=== PATIENT | female | born 1965 | race Two or more races ===

== ENCOUNTER 2017-01-30 00:25 | Emergency (ER) | payer OTHER ==
[~2017-01-30] VITALS: Ht 160 cm; Wt 124.3 kg
[2017-01-30 00:25] VITALS: BP 119/86
[~2017-01-30 00:25] MED LIST: BUPR100T4 PO; LANS30TA4 PO; LITH150C PO; TRAZ300T2 PO
== END 2017-01-30 01:00 | disposition home or self-care (01) ==
LOC: ER 00:32
DX: H61.21 Impacted cerumen, right ear (principal); R19.7 Diarrhea, unspecified; Z90.710 Acquired absence of both cervix and uterus; Z88.5 Allergy status to narcotic agent
CPT/HCPCS: 99283; A4606; Z7610

== ENCOUNTER 2017-03-06 13:49 | Emergency (ER) | payer OTHER ==
[~2017-03-06] VITALS: Ht 160 cm; Wt 121.7 kg
--- NOTE | 2017-03-06 13:55 | NUR ---
PT AMBULATORY TO ER 12 C/O SUDDEN ONSET CP. ALSO C/O L SIDE CHEST MASS. ASKING FOR ANTIBIOTICS FOR IT. GOWNED AND PLACED ON MONITOR. STABLE VITALS. AWAITING MD HARRELL.
--- NOTE | 2017-03-06 14:11 | NUR ---
DR FISHER AT BEDSIDE FOR EVAL.
[2017-03-06 14:41] LABS: BASOPHILS % (AUTO) 0.4 % (0.0-2.0); EOSINOPHILS # (AUTO) 0.2 /CMM (0.0-0.7); HEMATOCRIT 39 % (33-45); LYMPHOCYTES # (AUTO) 2.1 /CMM (0.8-4.8); LYMPHOCYTES % (AUTO) 21.4 % (20.0-44.0); MEAN CORPUSCULAR HEMOGLOBIN 28 PG (26.0-33.0); MEAN CORPUSCULAR HGB CONC 34 g/dl (31.0-36.0); MEAN CORPUSCULAR VOLUME 84 fL (82-100); MONOCYTES # (AUTO) 0.4 /CMM (0.1-1.30); MONOCYTES % (AUTO) 4.2 % (2.0-12.0); NEUTROPHILS # (AUTO) 7.2 /CMM (1.8-8.9); PLATELET COUNT (AUTO) 338 /CMM (150-450); RDW COEFFICIENT OF VARIATION 14.4 (11.5-15.0); RED BLOOD CELL COUNT(AUTO) 4.58 MIL/uL (4.0-5.2); WHITE BLOOD COUNT (AUTO) 9.9 K/uL (4.3-11.0)
[2017-03-06] MEDS ORDERED: ACETAMINOPHEN ES 500 MG TABLET ONE (14:41)
[2017-03-06] MEDS ORDERED: ONDANSETRON HCL/PF 4 MG/2 ML VIAL ONE (14:41)
[2017-03-06 14:52] LABS: CALCIUM, SERUM 8.6 mg/dL (8.5-10.1); CARBON DIOXIDE 27 mmol/L (21-32); CHLORIDE 106 mmol/L (98-107); CREATININE 0.6 mg/dL (0.6-1.3); GLUCOSE 113 mg/dL (74-106); POTASSIUM 3.5 mmol/L (3.5-5.1); SODIUM SERUM 139 mmol/L (136-145); UREA NITROGEN, BLOOD 9 mg/dL (7-18)
[2017-03-06 14:55] LABS: INR 0.96 (0.87-1.13)
[2017-03-06] MEDS ORDERED: ACETAMINOPHEN ES 500 MG TABLET PO ONE (15:00)
[2017-03-06] MEDS ORDERED: IV NS 0.9% 1,000 ML BAG IV ONE (15:00)
[2017-03-06] MEDS ORDERED: ONDANSETRON HCL/PF 4 MG/2 ML VIAL IV ONE (15:00)
[2017-03-06 15:02] LABS: TROPONIN I < 0.017 ng/mL (0.00-0.056)
--- NOTE | 2017-03-06 15:31 | NUR ---
Patient discharged to home in stable condition. Written and verbal after care instructions given. Patient verbalizes understanding of instruction.IV removed. Catheter intact and site benign. Pressure and 4x4 applied to site. No bleeding noted.
[2017-03-06 15:32] VITALS: BP 124/68
== END 2017-03-06 15:33 | disposition home or self-care (01) ==
LOC: ER 13:50
DX: R07.89 Other chest pain (principal); N61.0 Mastitis without abscess; F17.200 Nicotine dependence, unspecified, uncomplicated; E78.00 Pure hypercholesterolemia, unspecified; K21.9 Gastro-esophageal reflux disease without esophagitis; F31.9 Bipolar disorder, unspecified; F10.10 Alcohol abuse, uncomplicated; E78.5 Hyperlipidemia, unspecified; Z88.5 Allergy status to narcotic agent; Z71.6 Tobacco abuse counseling
CPT/HCPCS: 36415; 71045-TC; 80048-TC; 84484-TC; 85025-TC; 85730-TC; A4606; J2405; J7030; Z7610

== ENCOUNTER 2019-03-06 12:46 | Emergency (ER) | payer OTHER ==
[~2019-03-06] VITALS: Ht 160 cm; Wt 87.5 kg
[2019-03-06 12:50] VITALS: BP 136/86
[2019-03-06] MEDS ORDERED: KETOROLAC TROMETHAMINE INJ 60 MG/2 ML VIAL IM ONE ×2 (13:00→13:02)
[2019-03-06] MEDS ORDERED: DIAZEPAM 10 MG TABLET PO ONE (13:00)
[2019-03-06] MEDS ORDERED: DIAZEPAM 5 MG TABLET ONE (13:02)
== END 2019-03-06 13:38 | disposition home or self-care (01) ==
LOC: ER 12:49
DX: M26.622 Arthralgia of left temporomandibular joint (principal); K21.9 Gastro-esophageal reflux disease without esophagitis; F31.9 Bipolar disorder, unspecified; E78.5 Hyperlipidemia, unspecified; F17.200 Nicotine dependence, unspecified, uncomplicated; Z90.710 Acquired absence of both cervix and uterus; Z88.5 Allergy status to narcotic agent; Z79.899 Other long term (current) drug therapy
CPT/HCPCS: 82962; 96372; 99283; J1885

== ENCOUNTER 2019-04-25 21:52 | Emergency (ER) | payer OTHER ==
[~2019-04-25] VITALS: Ht 160 cm; Wt 91.6 kg
[2019-04-25 22:01] VITALS: BP 144/84
--- NOTE | 2019-04-25 22:24 | NUR ---
RT HAND INDEX FINGER LACERATION DERMABONDED.
[2019-04-25] MEDS ORDERED: HYDROCODONE/APAP 10/325MG 1 EA TABLET ONE (22:28)
[2019-04-25] MEDS ORDERED: HYDROCODONE/APAP 10/325MG 1 EA TABLET PO ONE (22:30)
== END 2019-04-25 22:43 | disposition home or self-care (01) ==
LOC: ER 21:54
DX: S61.210A Laceration without foreign body of right index finger without damage to nail, initial encounter (principal); K21.9 Gastro-esophageal reflux disease without esophagitis; E78.5 Hyperlipidemia, unspecified; Z90.710 Acquired absence of both cervix and uterus; Z88.5 Allergy status to narcotic agent; Z79.899 Other long term (current) drug therapy; W26.0XXA Contact with knife, initial encounter; Y93.89 Activity, other specified; Y92.89 Other specified places as the place of occurrence of the external cause; Y99.8 Other external cause status

== ENCOUNTER 2019-10-24 20:26 | Emergency (ER) | payer OTHER ==
--- NOTE | 2019-10-24 20:44 | NUR ---
FSBS: 101. NO S/S OF HYPOGLYCEMIA NOTED. PT REPORTED FEELING WELL. WILL CALL PT BACK IN TO THE TRIAGE ROOM [facility]
--- NOTE | 2019-10-24 21:03 | NUR ---
CALLED FOR NATASHA NO ANSWER
--- NOTE | 2019-10-24 21:11 | NUR ---
CALLED FOR NATASHA NO ANSWER
== END 2019-10-24 21:43 | disposition left against medical advice (07) ==
LOC: ER 20:30
DX: Z53.21 Procedure and treatment not carried out due to patient leaving prior to being seen by health care provider (principal); E16.2 Hypoglycemia, unspecified
CPT/HCPCS: 82962-TC

== ENCOUNTER 2019-12-09 17:14 | Emergency (ER) | payer OTHER ==
[~2019-12-09] VITALS: Ht 160 cm; Wt 92.1 kg
--- NOTE | 2019-12-09 17:24 | NUR ---
pt came to er with c/o HEAD INJURY, L FOOT PAIN S/P FALL LAST NIGHT. DENIES KO. NO N/V. NO ZEISURE. NO SWELLING ON LEFT FOOT. ABLE TO MOVE EXTREMITY. AWAITING FOR MD HARRELL
--- NOTE | 2019-12-09 17:28 | NUR ---
seen and evaluated by INDUSTRIAL DESIGNER with new orders noted
[2019-12-09] MEDS ORDERED: KETOROLAC TROMETHAMINE INJ 60 MG/2 ML VIAL IM ONE (17:30)
--- NOTE | 2019-12-09 17:42 | NUR ---
radiology at bedside for L foot/ankle xray.
[2019-12-09] MEDS ORDERED: KETOROLAC TROMETHAMINE INJ 30 MG/ML VIAL ONE ×2 (17:43→17:45)
[2019-12-09 18:37] VITALS: BP 122/73
--- NOTE | 2019-12-09 18:37 | NUR ---
Patient discharged to home in stable condition. Written and verbal after care instructions given. Patient verbalizes understanding of instruction.
== END 2019-12-09 18:38 | disposition home or self-care (01) ==
LOC: ER 17:17
DX: S93.492A Sprain of other ligament of left ankle, initial encounter (principal); S09.8XXA Other specified injuries of head, initial encounter; E11.9 Type 2 diabetes mellitus without complications; K21.9 Gastro-esophageal reflux disease without esophagitis; E78.5 Hyperlipidemia, unspecified; Z90.710 Acquired absence of both cervix and uterus; Z88.5 Allergy status to narcotic agent; Z79.899 Other long term (current) drug therapy; W18.39XA Other fall on same level, initial encounter; Y93.89 Activity, other specified; Y92.89 Other specified places as the place of occurrence of the external cause; Y99.8 Other external cause status
CPT/HCPCS: 73610; 73630; 96372; 99284; J1885

== ENCOUNTER 2020-02-07 20:34 | Emergency (ER) | payer OTHER ==
[~2020-02-07] VITALS: Ht 157.5 cm; Wt 90.7 kg
[2020-02-07 21:11] VITALS: BP 113/80
--- NOTE | 2020-02-07 21:15 | NUR ---
URINE COLLECTED. SENT TO LAB
[2020-02-07] MEDS ORDERED: LORAZEPAM 1 MG TABLET PO ONE (21:30)
[2020-02-07] MEDS ORDERED: ONDANSETRON 4 MG TAB.RAPDIS PO ONE (21:30)
[2020-02-07] MEDS ORDERED: ACETAMINOPHEN 325 MG TABLET PO ONE (21:30)
--- NOTE | 2020-02-07 21:30 | NUR ---
ISAAC C/O +SI -HI, PLAN TO OVERDOSE, ADMITS TO HEROINE AND ALCOHOL USE. PT AMBULATORY TO A CHAIR. ALL BELONGINGS TAKEN AWAY AND REMAINED UNDER CLOSE SUPERVISION FOR SI PRECAUTIONS. VSS.
[2020-02-07] MEDS ORDERED: LORAZEPAM 1 MG TABLET ONE (21:51)
[2020-02-07 21:52] LABS: BASOPHILS % (AUTO) 0.6 % (0.0-2.0); EOSINOPHILS % (AUTO) 4.3 % (0.0-6.0); HEMATOCRIT 37 % (33-45); HEMOGLOBIN 12.3 g/dL (11.5-14.8); LYMPHOCYTES # (AUTO) 2.4 /CMM (0.8-4.8); LYMPHOCYTES % (AUTO) 32.9 % (20.0-44.0); MEAN CORPUSCULAR HGB CONC 33 g/dl (31.0-36.0); MEAN CORPUSCULAR VOLUME 92 fL (82-100); MONOCYTES # (AUTO) 0.4 /CMM (0.1-1.30); NEUTROPHILS # (AUTO) 4.1 /CMM (1.8-8.9); NEUTROPHILS % (AUTO) 57.2 % (43.0-81.0); PLATELET COUNT (AUTO) 268 /CMM (150-450); RED BLOOD CELL COUNT(AUTO) 4.03 MIL/uL (4.0-5.2); WHITE BLOOD COUNT (AUTO) 7.2 K/uL (4.3-11.0)
[2020-02-07] MEDS ORDERED: ACETAMINOPHEN ES 500 MG TABLET ONE (21:52)
[2020-02-07] MEDS ORDERED: ONDANSETRON 4 MG TAB.RAPDIS ONE (21:52)
[2020-02-07 22:39] LABS: BILIRUBIN,URINE NEGATIVE (NEGATIVE); BLOOD, URINE NEGATIVE Ery/uL (NEGATIVE); COLOR,URINE YELLOW (YELLOW); LEUKOCYTE ESTERASE ,URINE NEGATIVE (NEGATIVE); NITRITE, URINE NEGATIVE (NEGATIVE); PH,URINE 5.5 (5.0-8.0); PROTEIN,URINE NEGATIVE (NEGATIVE); UGLUCOSE NEGATIVE (NEGATIVE); UROBILINOGEN,URINE 0.2 EU/dL (0.2)
[2020-02-07 22:41] LABS: CARBON DIOXIDE 24 mmol/L (21-32); CHLORIDE 105 mmol/L (98-107); CREATININE 0.7 mg/dL (0.6-1.3); GLUCOSE 113 mg/dL (74-106); POTASSIUM 3.7 mmol/L (3.5-5.1); SODIUM SERUM 143 mmol/L (136-145); UREA NITROGEN, BLOOD 9 mg/dL (7-18)
[2020-02-07 22:49] LABS: BACTERIA,URINE None seen /HPF (None Seen); RBC,URINE 0-2 /HPF (0-2); WBC,URINE 0-2 /HPF (0-3)
[2020-02-07 22:50] LABS: SQUAMOUS EPITHELIAL CELL,UR Moderate /HPF (None Seen); URINE AMORPHOUS URATE Few /HPF (None Seen); YEAST,URINE Few /HPF (None Seen)
[2020-02-07 23:00] LABS: ACETAMINOPHEN < 2 ug/ml (10-30); ALANINE AMINOTRANSFERASE 12 U/L (12-78); ALBUMIN 3.6 g/dL (3.4-5.0); ALCOHOL, BLOOD 7 mg/dL (0-0); ALKALINE PHOSPHATASE 135 U/L (46-116); ASPARTATE AMINOTRANSFERASE 12 U/L (15-37); BILIRUBIN,TOTAL 0.1 mg/dL (0.2-1.0); TOTAL PROTEIN, SERUM 7.3 g/dL (6.4-8.2)
--- NOTE | 2020-02-07 23:30 | NUR ---
CLINICAL FAXED TO [facility] FOR VOLUNTARY PSYCH ADMISSION.
--- NOTE | 2020-02-08 00:15 | NUR ---
PT ACCEPTED AT [facility] ASA BARBER ACCEPTING MD VERONICA PT WILL GO TO UNIT 1 PHONE # FOR REPORT
--- NOTE | 2020-02-08 00:22 | NUR ---
[facility] CALL THE CAR CALLED FOR TRANSPORT. TRIP#[id number]. REQUESTING FOR [phone]
--- NOTE | 2020-02-08 01:58 | NUR ---
REPORT GIVEN TO KARINA FERRER [facility] FOR DEMETRI
--- NOTE | 2020-02-08 02:27 | NUR ---
REPORT GIVEN TO EMT TRANSPORT.
== END 2020-02-08 02:27 ==
LOC: ER 20:36
DX: R45.851 Suicidal ideations (principal); F31.9 Bipolar disorder, unspecified; R11.0 Nausea; Z20.828 Contact with and (suspected) exposure to other viral communicable diseases; E78.5 Hyperlipidemia, unspecified; K21.9 Gastro-esophageal reflux disease without esophagitis; F10.20 Alcohol dependence, uncomplicated; Y90.0 Blood alcohol level of less than 20 mg/100 ml; Z90.710 Acquired absence of both cervix and uterus; F17.200 Nicotine dependence, unspecified, uncomplicated; Z79.899 Other long term (current) drug therapy
CPT/HCPCS: 36415; 80048; 80076; 80299; 80307; 80320; 81001; 84703; 85025; 87426; 99285; C9803; Q0162; G0480

== ENCOUNTER 2020-08-13 19:15 | Emergency (ER) | payer OTHER ==
[~2020-08-13] VITALS: Ht 160 cm; Wt 99.3 kg
[2020-08-13 20:35] VITALS: BP 126/66
[2020-08-13] MEDS ORDERED: KETOROLAC TROMETHAMINE INJ 30 MG/ML VIAL ONE (20:59)
[2020-08-13] MEDS ORDERED: KETOROLAC TROMETHAMINE INJ 60 MG/2 ML VIAL IM ONE (21:00)
[2020-08-13] MEDS ORDERED: NAPR-1164 PO (21:08)
[2020-08-13] MEDS ORDERED: CYCL5TAB PO (21:08)
== END 2020-08-13 21:16 | disposition home or self-care (01) ==
LOC: ER 19:16
DX: M62.830 Muscle spasm of back (principal); F17.200 Nicotine dependence, unspecified, uncomplicated; E66.9 Obesity, unspecified; Z68.38 Body mass index [BMI] 38.0-38.9, adult; K21.9 Gastro-esophageal reflux disease without esophagitis; E11.9 Type 2 diabetes mellitus without complications; E78.5 Hyperlipidemia, unspecified; F31.9 Bipolar disorder, unspecified; M19.90 Unspecified osteoarthritis, unspecified site; Z88.5 Allergy status to narcotic agent; Z79.899 Other long term (current) drug therapy
CPT/HCPCS: 96372; 99283; 99406; J1885

== ENCOUNTER 2020-11-03 14:58 | Emergency (ER) | payer OTHER ==
[~2020-11-03] VITALS: Ht 160 cm; Wt 83.9 kg
[~2020-11-03 14:58] MED LIST changes: +CYCL5TAB PO; +NAPR-1164 PO
--- NOTE | 2020-11-03 15:10 | NUR ---
TO ER BED 1, C/O BLOOD IN STOOL, ABDOMINAL PAIN, DIZZINESS SINCE THURSDAY, AAOX4, BREATHING EVEN AND UNLABORED
[2020-11-03] MEDS ORDERED: MAG HYDROX/AL HYDROX/SIMETH 30 ML UDC PO ONE (15:30)
[2020-11-03] MEDS ORDERED: LIDOCAINE VISCOUS 2% UD 15 ML UDC MM ONE (15:30)
[2020-11-03] MEDS ORDERED: MAG HYDROX/AL HYDROX/SIMETH 30 ML UDC ONE (15:33)
[2020-11-03] MEDS ORDERED: LIDOCAINE VISCOUS 2% UD 15 ML UDC ONE (15:33)
--- NOTE | 2020-11-03 15:42 | NUR ---
LAB AT BEDSIDE
[2020-11-03 15:49] LABS: BASOPHILS # (AUTO) 0.1 K/uL (0.0-0.2); BASOPHILS % (AUTO) 0.6 % (0.0-2.0); EOSINOPHILS % (AUTO) 0.8 % (0.0-6.0); HEMATOCRIT 43 % (33-45); HEMOGLOBIN 14.4 g/dL (11.5-14.8); LYMPHOCYTES # (AUTO) 1.9 K/uL (0.8-4.8); LYMPHOCYTES % (AUTO) 22.8 % (20.0-44.0); MEAN CORPUSCULAR HGB CONC 34 g/dl (31.0-36.0); MEAN CORPUSCULAR VOLUME 88 fL (82-100); MONOCYTES # (AUTO) 0.4 K/uL (0.1-1.30); MONOCYTES % (AUTO) 4.6 % (2.0-12.0); NEUTROPHILS # (AUTO) 5.8 K/uL (1.8-8.9); NEUTROPHILS % (AUTO) 71.2 % (43.0-81.0); PLATELET COUNT (AUTO) 309 K/uL (150-450); RED BLOOD CELL COUNT(AUTO) 4.88 MIL/uL (4.0-5.2); WHITE BLOOD COUNT (AUTO) 8.2 K/uL (4.3-11.0)
[2020-11-03 15:58] LABS: CREATININE 0.7 mg/dL (0.6-1.3); POTASSIUM 3.1 mmol/L (3.5-5.1)
[2020-11-03 16:04] LABS: ALBUMIN 3.8 g/dL (3.4-5.0); BILIRUBIN,DIRECT 0.1 mg/dL (0.0-0.2); BILIRUBIN,TOTAL 0.4 mg/dL (0.2-1.0); TOTAL PROTEIN, SERUM 7.9 g/dL (6.4-8.2)
--- NOTE | 2020-11-03 16:07 | NUR ---
URINE COLLECTED AND SENT TO LAB
[2020-11-03] MEDS ORDERED: IOHEXOL-300 100 ML VIAL IV ONE (16:38)
[2020-11-03] MEDS ORDERED: IV NS 0.9% 250 ML IV ONE (16:38)
--- NOTE | 2020-11-03 16:39 | NUR ---
TAKEN TO CT
[2020-11-03 16:43] LABS: BILIRUBIN,URINE SMALL (NEGATIVE); COLOR,URINE YELLOW (YELLOW); LEUKOCYTE ESTERASE ,URINE NEGATIVE (NEGATIVE); NITRITE, URINE POSITIVE (NEGATIVE); PROTEIN,URINE TRACE mg/dl (NEGATIVE); UGLUCOSE NEGATIVE (NEGATIVE); UROBILINOGEN,URINE 0.2 EU/dL (0.2)
[2020-11-03 16:56] LABS: BACTERIA,URINE 2+ /HPF (None Seen); MUCUS,URINE Moderate /LPF (None Seen); SQUAMOUS EPITHELIAL CELL,UR 0-2 /HPF (None Seen)
[2020-11-03] MEDS ORDERED: POTASSIUM CHLORIDE 20 MEQ TAB.PRT.SR PO ONE ×3 (17:00→17:33)
--- NOTE | 2020-11-03 17:42 | NUR ---
CALLED SUJEY FOR READING
[2020-11-03] MEDS ORDERED: CEPH500C2 PO (19:21)
[2020-11-03] MEDS ORDERED: OMEP20CA15 PO (19:21)
[2020-11-03 19:45] VITALS: BP 110/69
--- NOTE | 2020-11-03 19:46 | NUR ---
Patient discharged to home in stable condition. Written and verbal after care instructions given. Patient verbalizes understanding of instruction.IV removed. Catheter intact and site benign. Pressure and 4x4 applied to site. No bleeding noted. Rosa Elena ambulatory with a steady gait
== END 2020-11-03 19:47 | disposition home or self-care (01) ==
LOC: ER 15:00
DX: K29.70 Gastritis, unspecified, without bleeding (principal); N39.0 Urinary tract infection, site not specified; K21.9 Gastro-esophageal reflux disease without esophagitis; E11.9 Type 2 diabetes mellitus without complications; E78.5 Hyperlipidemia, unspecified; F17.200 Nicotine dependence, unspecified, uncomplicated; Z98.890 Other specified postprocedural states; Z88.5 Allergy status to narcotic agent; Z79.899 Other long term (current) drug therapy
CPT/HCPCS: 36415; 74177; 80048; 80076; 81001; 83690; 85025; 87077; 87086; 87186; 99285; J7050; Q9967